=== PATIENT | female | born 1975 | race African-American/Black ===

== ENCOUNTER 2023-09-25 14:55 | Outpatient (AMB) | payer OTHER, SELFPAY ==
--- NOTE | 2023-09-25 15:06 | MHC.OFFVIS ---
Vital Signs 09/25/23 15:16 Height 5 ft 6 in Weight 164 lb 2 oz BMI 26.5 BP 170/92 H Blood Pressure Location Rt brachial Position Sitting Respiration 16 Pulse 98 Pulse Source Pulse Oximeter Pulse Oximetry (%) 99 Oxygen Delivery Method Room Air Intake Visit Reasons: ENP: Pituitary/paresthe face/neck - LVM w/add Intake Note: Pt presents to the office for new pt consultation for paresthesia of face and neck. 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 Allergies sertraline Allergy (Intermediate, Verified 09/25/23 15:09) tremor acetaminophen [From Percocet] Allergy (Mild, Verified 09/25/23 15:09) Itching hydrocodone Allergy (Mild, Verified 09/25/23 15:09) Unknown oxycodone [From Percocet] Allergy (Mild, Verified 09/25/23 15:09) Itching Medication List - Last Reconciled 09/25/23 by Keira Grady MD albuterol sulfate 90 mcg/actuation 1 inh inhalation QID apremilast (Otezla) 30 mg PO BID betamethasone dipropionate 0.05% 1 appl topical DAILY PRN diclofenac sodium 75 mg PO BID fluocinolone 0.01% 1 appl topical DAILY fluticasone furoate 27.5 mcg/actuation 1 spray intranasal DAILY HPI Comments Details: 47y/o female with h/o anxiety , Possible PTSD comes for evaluation of numbness , tingling in he head face and chest. The symptoms started about 8 mths ago - intermittent numbness tingling on both sides of face , occipital headaches , may spread to her neck and upper chest. The episode can can last 30 minutes to few hrs. sometimes she feels like her lips are numb or her cheeks are numb. 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 Her symptoms have been less. she has frequent headaches - can last 1-2 days and has 2/week. It can be unilateral, occipital, unitemporal , parietal , band around her head, with nausea, photophobia , face tingling etc. she takes advil or tylenol. No loss of consciousness, no change in mentation she is tears during todays interview, says she has lost ability to deal with stress. she was started on sertraline in 2020 when her grandfather passed and she was in charge of her Grand parents ( 3years ). It was overwhelming for her. 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 she had side effects tremors. so she stopped and was started on clonazepam 1mg bid and switched to 0.5mg bid PFSH Medical History (Updated 09/25/23 @ 15:58 by Keira Grady MD) Numbness and tingling Migraine with aura Psoriasis Serotonin syndrome Endometriosis Chronic back pain Anxiety Depression COVID Surgical History (Updated 09/25/23 @ 15:22 by Tiffany Desouza CMA) S/P ankle ligament repair H/O bilateral salpingectomy H/O tooth extraction H/O tubal ligation H/O total hysterectomy H/O foot surgery H/O section Family History (Updated 09/25/23 @ 15:16 by Tiffany Desouza CMA) Mother Cervical cancer Diabetes A-fib Hypothyroid Hypercholesterolemia Social History (Updated 09/25/23 @ 15:14 by Tiffany Desouza CMA) Household Members: Family Housing: House Alcohol intake: never Patient Tobacco Use Status: Never used Tobacco Use of substances other than those prescribed or required for medical reasons: No Physical Exam Vital Signs: Last Vital Signs Pulse 98 09/25/23 15:16 Resp 16 09/25/23 15:16 BP 170/92 H 09/25/23 15:16 Pulse Ox 99 09/25/23 15:16 Oxygen Delivery Method Room Air 09/25/23 15:16 BMI result Body Mass Index 26.5 Const General: cooperative, healthy appearing, comfortable and anxious Nutritional Appearance: average body habitus Orientation/consciousness: patient oriented x3 Eyes Pupils: Equal, round and reactive pupils present Neuro General: patient oriented x3, gait normal, tone normal, moves all extremities and no focal motor deficits Cranial nerves: Yes Facial sensation intact/muscles of mastication intact, Yes Equal, round and reactive pupils present, Yes Bilaterally intact EOM present, Yes Nystagmus not present, Yes Normal facial strength present, Yes Midline tongue present and Yes Symmetric palate elevation present Cognition (Neuro): normal cognition Gait exam (Neuro): Normal gait present Motor exam (neuro): 5/5 motor strength present throughout and Normal motor muscle tone present throughout Deep tendon reflexes (DTR's): Right triceps reflex intensity grade: 2+, Left triceps reflex intensity grade: 2+, Rt Biceps (C5, C6): 2+, Left biceps reflex intensity grade: 2+, Right brachioradialis reflex intensity grade: 2+, Left brachioradialis reflex intensity grade: 2+, Right patellar reflex intensity grade: 2+ and Left patellar reflex intensity grade: 2+ Coordination: [id number] test normal Psych Affect: Anxious affect present Results Reviewed Results Reviewed: MRI Brain- w/wo 04/05/23- mild empty sella 0.6X0.5X).5 cm cystic 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 Left mastoid fullness. MRI C spine 03/12/23 Mild deg changes prominent at C5-6 Assessment & Plan Assessment & Plan (1) Numbness and tingling: Comment: episodic - ? related to poorly controlled mood disorder, Migraines ? Code(s): R20.0 - Anesthesia of skin; R20.2 - Paresthesia of skin Category: Medical (2) Migraine with aura: Code(s): G43.109 - Migraine with aura, not intractable, without status migrainosus Category: Medical Plan Refer to Dr. Mccain for further management of mood I will rial her on gabapentin 300mg qh s B2 400mg qam and magnesium 400mg qhs Orders: Referrals Psychiatry Referral F32.A - Depression, unspecified, F41.9 - Anxiety disorder, unspecified Medications: New magnesium oxide 400 mg PO BEDTIME 30 tabs 6RF riboflavin (vitamin B2) 400 mg PO QAM 30 tabs 6RF buspirone 5 mg PO BID 60 tabs 6RF gabapentin 300 mg PO BEDTIME 30 caps 3RF Coding Level of Care Code New Pt Level 4 (81637) Complex EM visit Add On G2211 Diagnoses Numbness and tingling R20.0; R20.2 Migraine with aura G43.109
[2023-09-25 15:16] VITALS: BP 170/92; PULSE 98; RESP 16; O2SAT 99; BMI 26.5
== END 2023-09-25 16:02 | disposition home or self-care (01) ==
PROVIDERS: PCP Internal Medicine; Visit Provider Psychiatry & Neurology Neurology
DX: R20.0 Anesthesia of skin (principal); R20.2 Paresthesia of skin; G43.109 Migraine with aura, not intractable, without status migrainosus
CPT/HCPCS: 99204

== ENCOUNTER → 2023-09-25 14:55 | Outpatient (BNVA) | payer OTHER, SELFPAY | PROVIDERS: PCP Internal Medicine; Visit Provider Psychiatry & Neurology Neurology ==